=== PATIENT | male | born 1995 | race Hispanic/Latino ===

== ENCOUNTER 2020-09-23 20:30 | Emergency (ER) | payer BC, SELFPAY ==
[~2020-09-23 20:30] MED LIST: Iopamidol-370 76% 500 ML 1 ML ONE
[2020-09-23 21:22] LABS: #Basophils 0.1 thou/uL (0.0-0.2); #Eosinphils 0.1 thou/uL (0.0-0.7); #Lymphocytes 2.6 thou/uL (1.20-3.40); #Neutrophils 14.2 thou/uL (1.40-6.50); %Basophils 0.3 % (0.0-1.0); %Eosinophils 0.4 % (0.0-10.0); %Lymphocytes 14.7 % (21.0-51.0); %Monocytes 5.6 % (0.0-10.0); %Neutrophils 79.1 % (42.0-75.0); Hemoglobin 15.4 g/dL (14.0-18.0); Mean Corpuscular HGB CONC 34.4 g/dL (32.0-36.0); Mean Corpuscular Hemoglobin 27.9 pg (27.0-31.0); Mean Corpuscular Volume 81.2 fL (78.0-98.0); Mean Platelet Volume 7.7 fL (7.4-10.4); Platelet Count 277 thou/uL (130-400); RBC Distribution Width 11.6 % (11.5-14.5); Red Blood Cell (RBC) Count 5.53 mill/uL (4.70-6.10)
[2020-09-23 21:39] LABS: ALT (SGPT) 23 U/L (8-55); AST (SGOT) 27 U/L (5-34); Albumin 4.5 g/dL (3.5-5.0); Alkaline Phosphatase 60 U/L (40-110); Anion Gap 17 mmol/L (10-20); BUN (Urea Nitrogen) 14 mg/dL (8.9-20.6); Bilirubin, Total 0.8 mg/dL (0.2-1.2); Calc. Creatinine Clearance 0 mL/min (70-130); Calcium 9.3 mg/dL (7.8-10.44); Carbon Dioxide 20 mmol/L (22-29); Chloride 105 mmol/L (98-107); Globulin 2.9 g/dL (2.4-3.5); Glucose 108 mg/dL (70-105); Potassium 4.1 mmol/L (3.5-5.1); Protein, Total 7.4 g/dL (6.0-8.3); Sodium 138 mmol/L (136-145)
--- NOTE | 2020-09-23 21:57 | CT ---
CT HEAD WITHOUT IV CONTRAST COMPARISON: None HISTORY: Injury after a fall. TECHNIQUE: Axial CT imaging at 5 mm intervals from vertex through skull base without contrast FINDINGS: There is no evidence of an acute infarction, hemorrhage, mass effect, or midline shift. The ventricul ar system is normal in size, shape, and position. Skull base has a normal CT appearance. Mucous retention cyst is present in each maxillary antrum. Visualized mastoid air cells are clear. Osseous structures appear intact.No depressed calvarial fracture is seen. IMPRESSION: 1. No acute intracranial abnormality demonstrated.
[2020-09-23] MEDS ORDERED: Ondansetron PF 4 MG/2 ML Vial ONE (22:00)
[2020-09-23] MEDS ORDERED: Morphine 4 MG/ML VIAL ONE (22:00)
--- NOTE | 2020-09-23 22:09 | CT ---
CT ABDOMEN AND PELVIS WITH IV CONTRAST CT lumbar spine 09/23/2020 CLINICAL INFORMATION: Left-sided rib pain and abdominal pain. Trauma. COMPARISON: None. Technique: Multiple contiguous axial CT images are obtained through the abdomen and pelvis with IV contrast. Cor onal reformatted images are provided. FINDINGS: Lower Chest: There is atelectasis present at each lung base. No pleural fluid or pneumothorax is seen at either lung base. Vessels: Aorta is normal in caliber without evidence of an aortic injury. Abdomen: Portal vein:Patent Gallbladder: Decompressed but otherwise within normal limits Liver: within normal limits. Spleen: within normal limits. Pancreas: within normal limits. Adrenals: within normal limits. Kidneys: within normal limits. Bowel: Normal caliber. Appendix: The appendix is visualized and normal in caliber. Peritoneum: No ascites or free air; no fluid collection. Mesentery and Retroperitoneum: No enlarged mesenteric or retroperitoneal lymph nodes. Abdominal Wall: within normal limits. Pelvis: Reproductive Organs: No pelvic masses. Bladder: within normal limits. Bones: There are nondisplaced fractures involving the posterior left seventh, eighth, and ninth ribs. The left seventh rib fracture is incompletely imaged. CT lumbar spine: No fracture or subluxation is seen involving the lumbar spine. IMPRESSION: 1. Fractures involving the posterior left seventh through ninth ribs. 2. No acute findings in the abdomen or pelvis. 3. No fracture or subluxation involving the lumbar spine.
== END 2020-09-23 23:10 | disposition home or self-care (01) ==
LOC: ERS 20:30
DX: S06.0X9A Concussion with loss of consciousness of unspecified duration, initial encounter (principal); S22.42XA Multiple fractures of ribs, left side, initial encounter for closed fracture; V89.9XXA Person injured in unspecified vehicle accident, initial encounter; J45.909 Unspecified asthma, uncomplicated
CPT/HCPCS: 36415; 70450; 74177; 80053; 85025; 86850; 86900; 86901; 96374; 96375; J2270; J2405; Q9967